=== PATIENT | female | born 1950 | race Hispanic/Latino ===

== ENCOUNTER 2017-04-04 06:39 | Day surgery (SDC) | payer MEDICARE ==
[2017-04-01 12:55] LABS: Basophils % (Auto) 0.1 % (0.0-1.8); Eosinophils % (Auto) 0.1 % (0.0-4.3); Hematocrit 29.6 % (30.3-42.9); Hemoglobin 9.9 gm/dl (10.1-14.3); Mean Corpuscular HGB Conc 33 % (30-34); Mean Corpuscular Hemoglobin 31 pg (28-32); Mean Corpuscular Volume 94 fl (79-97); Platelet Count 121 K/mm3 (140-440); Red Blood Count 3.15 M/mm3 (3.65-5.03); Red Cell Distribution Width 14.1 % (13.2-15.2); White Blood Count 6.2 K/mm3 (4.5-11.0)
[2017-04-01 13:11] LABS: INR 0.92 (0.87-1.13)
[2017-04-01 13:12] LABS: Partial Thromboplastin Time 20.4 Sec. (24.2-36.6)
[2017-04-01 13:14] LABS: Alanine Aminotransferase 13 units/L (7-56); Albumin/Globulin Ratio 1.3 %; Alkaline Phosphatase 69 units/L (35-129); Anion Gap 16 mmol/L; Blood Urea Nitrogen 9 mg/dL (7-17); Carbon Dioxide 28 mmol/L (22-30); Chloride 100.3 mmol/L (98-107); Glucose 98 mg/dL (65-100); Sodium 141 mmol/L (137-145); Total Protein 7.2 g/dL (6.3-8.2)
[2017-04-01 13:23] LABS: Bilirubin,Urine NEG (Negative); Blood,Urine NEG (Negative); Ketones,Urine NEG (Negative); Leukocyte Esterase,Urine SM (Negative); Nitrite,Urine NEG (Negative); Protein,Urine <15 mg/dL mg/dL (Negative); Urobilinogen,Urine < 2.0 mg/dL (<2.0)
[2017-04-01 14:02] LABS: Potassium 2.8 mmol/L (3.6-5.0)
[~2017-04-04 06:39] MED LIST: NACL 0.9% 1000 ML 1,000 ML IV SCH; PEPCID PO NR
[2017-04-04] MEDS ORDERED: SUBLIMAZE ONE (06:48)
[2017-04-04] MEDS ORDERED: VERSED IV ONE (06:49)
[2017-04-04] MEDS ORDERED: DIPRIVAN 10 MG/ML IV ONE (06:51)
--- NOTE | 2017-04-04 07:09 | Anesthesia Consultation ---
Anesthesia Consult and Med Hx Date of service: 04/04/17 - Airway Anesthetic Teeth Evaluation: Poor ROM Head & Neck: Adequate Mental/Hyoid Distance: Adequate Mallampati Class: Class II Intubation Access Assessment: Probably Good - Pulmonary Exam CTA: Yes - Cardiac Exam Cardiac Exam: RRR - Pre-Operative Health Status ASA Pre-Surgery Classification: ASA2 Proposed Anesthetic Plan: General - Pulmonary Hx Smoking: Yes (former) - Cardiovascular System Hx Hypertension: Yes Hx Peripheral Vascular Disease: Yes (Stents in both legs x 7 yrs) - Central Nervous System Hx Psychiatric Problems: No - Other Systems Hx Cancer: Yes - Additional Comments Anesthesia Medical History Comments: Quits smoking 10 years ago. NAC previously. Spinal fusion, decompression & foramenotomy in 2014, without complications. 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
--- NOTE | 2017-04-04 07:10 | Anesthesia Day of Surgery ---
Anesthesia Day of Surgery - Day of Surgery Patient Examined: Yes Patient H&P Reviewed: Yes Patient is NPO: Yes Beta Blockers: Yes
[2017-04-04] MEDS ORDERED: NACL BACTERIOSTATIC INFILTRATI ONE (07:14)
[2017-04-04] MEDS ORDERED: TORADOL ONE (07:53)
[2017-04-04] MEDS ORDERED: WATER FOR IRRIG STERILE IR ONE ×2 (08:22→08:31)
--- NOTE | 2017-04-04 09:46 | Ultrasound Report ---
Operative ultrasound guidance: Trans abdominal imaging of the pelvis demonstrates a bright echo consistent with successful tandem placement in the mid uterus.
[2017-04-04 10:44] VITALS: BP 113/47
--- NOTE | 2017-04-04 11:08 | Operative Report ---
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 PROCEDURE: Exam under anesthesia and placement of tandem and ovoid device for high dose radiation treatment. ANESTHESIA: Spinal. SURGEON: Tony Farley MD INDICATIONS: This is a 66-year-old woman with a history of FIGO stage IIB squamous cell carcinoma of the cervix presenting for her first tandem and ovoid insertion with high dose rate iridium 192. FINDINGS: Pelvic exam revealed normal external genitalia. Vaginal examination is unremarkable. The exocervix was necrotic and partially obliterated. There was no evidence of parametrial pelvic sidewall disease. The endocervix measured 4 cm. DESCRIPTION OF PROCEDURE: The patient was prepped and draped in usual manner and under spinal anesthesia, the patient was placed in the dorsal lithotomy position. A Hdz catheter with 200 mL of saline was inserted into the bladder. A Menno and weighted speculum was inserted into the vaginal canal and the uterine cavity was probed to 4 cm. A #3 tandem with flange at 4 cm was inserted into the uterine cavity. Ultrasound confirmed positioning of the tandem within the uterine cavity. Two small ovoids were then inserted into the upper vaginal cavity and the system was packed in place. The patient was then placed in a horizontal position. Kerlix dressing was used to mobilize the tandem and ovoid device to the waistband Kerlix. The patient was transferred to the recovery room and will be discharged to the [facility] for her first high dose rate radiation treatment. [facility]# [id number] HERNESTO/ARCELIA
--- NOTE | 2017-04-04 11:29 | Discharge Summary ---
REASON FOR ADMISSION: This is a 66-year-old woman who has a history of stage II squamous cell carcinoma of the cervix, undergoing exam under anesthesia and placement of tandem and ovoid device for high-dose radiation treatment. HOSPITAL COURSE: See dictated operative note. DISPOSITION: The patient was discharged to the [facility] for her first fraction of high-dose iridium 192. JOB# [id number] HERNESTO/ARCELIA
--- NOTE | 2017-04-04 17:24 | Post Anesthesia Evaluation ---
- Post Anesthesia Evaluation Patient Participated: Yes Airway Patent: Yes Stable Respiratory Function: Yes Nausea/Vomiting: No Temp > 96.8F: Yes Pain Manageable: Yes Adequeate Hydration: Yes Anesthesia Complications: No
== END 2017-04-04 06:40 | disposition home or self-care (01) ==
LOC: OR 06:39
PROVIDERS: ATTEND Radiology Radiation Oncology
DX: C53.9 Malignant neoplasm of cervix uteri, unspecified (principal); I10 Essential (primary) hypertension; Z87.891 Personal history of nicotine dependence; Z95.820 Peripheral vascular angioplasty status with implants and grafts; Z98.1 Arthrodesis status; Z88.5 Allergy status to narcotic agent
CPT/HCPCS: 36415; 57155; 76998; 80053; 81001; 83735; 84132; 85025; 85610; 85730; 87086; 93005; 93010; J1885; J2250; J2704; J3010; J7030